=== PATIENT | male | born 1950 | race Two or more races ===

== ENCOUNTER → 2017-05-12 | Outpatient (CLI) | payer MEDICARE ==
[~2017-05-12] VITALS: Ht 188 cm; Wt 96.2 kg
[~2017-05-12] MED LIST: ASPI1TAB PO; ATOR1TAB21 PO; MULT1TAB10 PO; NS 1,000 ML IV ONE; PROPOFOL 200 MG/20 ML VIAL As Ordered ONE
--- NOTE | 2017-05-12 09:57 | ROOR ---
Patient Name: Adrian Rendon Procedure Date: 05/12/2017 9:27 AM Date of : 1950 Age: 66 Room: [facility] [place] Gender: Male Note Status: Finalized Procedure: Total Colonoscopy to Cecum + Cold Snare Polypectomy + Hemoclip Indications: Screening for colorectal malignant neoplasm, Last colonoscopy 10 years ago Providers: Mushtaq Hartman MD Referring MD: Jess Carlisle MD Requesting Provider: Medicines: Monitored Anesthesia Care Complications: No immediate complications. Procedure: Pre-Anesthesia Assessment: - The heart rate, respiratory rate, oxygen saturations, blood pressure, adequacy of pulmonary ventilation, and response to care were monitored throughout the procedure. The Colonoscope was introduced through the anus and advanced to the cecum, identified by appendiceal orifice and ileocecal valve. The colonoscopy was performed without difficulty. The patient tolerated the procedure well. The quality of the bowel preparation was excellent. Findings: The perianal and digital rectal examinations were normal. Non-bleeding internal hemorrhoids were found during retroflexion. The hemorrhoids were small and Grade I (internal hemorrhoids that do not prolapse). Multiple small and large-mouthed diverticula were found in the recto-sigmoid colon, sigmoid colon and descending colon. A small polyp was found at 20 cm proximal to the anus. The polyp was sessile. The polyp was removed with a cold snare. Resection and retrieval were complete. To prevent bleeding after the polypectomy, one hemostatic clip was successfully placed (MR conditional). There was no bleeding at the end of the procedure. A small polyp was found at 25 cm proximal to the anus. The polyp was sessile. The polyp was removed with a cold snare. Resection and retrieval were complete. The exam was otherwise without abnormality on direct and retroflexion views. Impression: - Non-bleeding internal hemorrhoids. - Diverticulosis in the recto-sigmoid colon, in the sigmoid colon and in the descending colon. - One small polyp at 20 cm proximal to the anus, removed with a cold snare. Resected and retrieved. Clip (MR conditional) was placed. - One small polyp at 25 cm proximal to the anus, removed with a cold snare. Resected and retrieved. - The examination was otherwise normal on direct and retroflexion views. - The exam was otherwise normal to the cecum. Recommendation: - Patient has a contact number available for emergencies. The signs and symptoms of potential delayed complications were discussed with the patient. Return to normal activities tomorrow. Written discharge instructions were provided to the patient. - High fiber diet. - Discharge patient to home. - Continue present medications. - Await pathology results. - Telephone GI clinic for pathology results in 1 week. - Telephone GI clinic for pathology results in 1 week. - Repeat colonoscopy for surveillance based on pathology results. - The findings and recommendations were discussed with the patient's family. Mushtaq Hartman MD Mushtaq Hartman MD 05/12/2017 9:57:24 AM This report has been signed electronically. Number of Addenda: 0 Note Initiated On: 05/12/2017 9:27 AM Estimated Blood Loss: Estimated blood loss: none.
[2017-05-12 10:14] VITALS: BP 129/79
== END | disposition home or self-care (01) ==
LOC: M OPP 08:30
PROVIDERS: ATTEND Internal Medicine Gastroenterology
DX: Z12.11 Encounter for screening for malignant neoplasm of colon (principal); K64.0 First degree hemorrhoids; K57.30 Diverticulosis of large intestine without perforation or abscess without bleeding; D12.5 Benign neoplasm of sigmoid colon; K63.5 Polyp of colon; E78.00 Pure hypercholesterolemia, unspecified; E11.9 Type 2 diabetes mellitus without complications; Z79.82 Long term (current) use of aspirin; Z79.899 Other long term (current) drug therapy

== ENCOUNTER → 2018-06-05 | Outpatient (REF) | payer MEDICARE ==
[2018-06-05 12:30] LABS: MALB URINE SIEMENS 16.1 MG/L; MAU/CREAT RATIO 9.5 MCG/MG (0.0-30.0)
== END ==
LOC: M SFHCPLAZ 11:49
DX: E11.9 Type 2 diabetes mellitus without complications (principal)
CPT/HCPCS: 82043

== ENCOUNTER → 2020-04-14 | Outpatient (CLI) | payer MEDICARE ==
[~2020-04-14] MED LIST changes: -ASPI1TAB PO; +ASPI81TA26 PO; +ISOVUE-370 76% 100ML VIAL As Ordered ONE; -NS 1,000 ML IV ONE; -PROPOFOL 200 MG/20 ML VIAL As Ordered ONE
--- NOTE | 2020-04-14 11:18 | REP ---
REASON: Followup findings from low-dose screening CT of the lungs, 03/17/2020, which was reviewed. That examination could not definitely rule out adenopathy due to the protocol utilized in obtaining the exam as per the screening protocol. CONTRAST TODAY: 100 mL Isovue-370. In the right paratracheal space, there is a 1-cm sized solid nodule which is abutting a curvilinear near water density structure which is arising from the superior pericardial recess. This has the appearance of a borderline size right paratracheal lymph node abutting an extended superior pericardial recess. There is no hannah hilar or mediastinal adenopathy. There are no pleural or pericardial effusions. The imaged upper abdomen is within normal limits. The imaged osseous structures are within normal limits for the patient's age. Evaluation of the lung pitt shows persistence of an irregular density in the right lung base, better imaged using standard protocol compared to low-dose screening protocol and having tiny cystic air spaces centrally. The lung pitt are otherwise clear with tiny peripheral pleural blebs seen in the apical regions and, again, better imaged using standard technique. IMPRESSION: 1. Mediastinal findings, as described above, are consistent with a borderline size right paratracheal lymph node abutting the superior pericardial recess. I would recommend close interval followup due to this patient's social history of tobacco abuse to ensure stability of the findings. The followup should be performed as today's examination, a contrast-enhanced examination, so an exact comparison can be made. 2. Changes in the right lung base, as described above, having the appearance of chronic change. This too can be followed in the recommended 3-month time interval. 3. There are some mild chronic lung field changed suggesting early emphysematous change, as described above. Incidentally, a small amount of density is seen in the trachea and in the mainstem bronchi, likely a small amount of mucoid debris. This was not present on the prior exam. Electronically Signed by Vincent Chapman DO 04/14/2020 02:46 P
== END ==
LOC: M RAD 09:50
PROVIDERS: ATTEND Family Medicine
DX: R59.0 Localized enlarged lymph nodes (principal); R91.8 Other nonspecific abnormal finding of lung field
CPT/HCPCS: 71260; Q9967

== ENCOUNTER → 2020-07-29 | Outpatient (CLI) | payer MEDICARE ==
[~2020-07-29] MED LIST changes: -ISOVUE-370 76% 100ML VIAL As Ordered ONE; +METF10004 PO; +MULTCAP PO
== END ==
LOC: M LABSMTC 09:23
PROVIDERS: ATTEND Anesthesiology
DX: Z01.812 Encounter for preprocedural laboratory examination (principal); Z20.828 Contact with and (suspected) exposure to other viral communicable diseases
CPT/HCPCS: C9803; U0003

== ENCOUNTER 2020-08-03 10:37 | Day surgery (SDC) | payer MEDICARE ==
[~2020-08-03] VITALS: Ht 185.4 cm; Wt 103.6 kg
[~2020-08-03 10:37] MED LIST changes: +BSS IRR 500ML/OMIDRIA 4ML IRR BAG (OR ONLY) (J1097 PER ML) As Ordered ONE; +CEFUROXIME 1MG/0.1ML INTRACAMERAL INJ As Ordered ONE; +DUOVISC (0.50ML VISCOAT/0.55ML PROVISC) OPHTH KIT As Ordered ONE; +OFLOXACIN 0.3 % (OCUFLOX) OPTH SOL 5ML OD ONE; +PHENYLEPHRINE 2.5% OPHTH SOL 2ML OD ONE; +POVIDONE-IODINE 5% OPHTH PREP SOL 30ML As Ordered ONE; +PROPARACAINE 0.5% OPHTH SOL 15ML OD ONE; +TROPICAMIDE 1% OPHTH SOLN 2ML OD ONE
[2020-08-03] MEDS ORDERED: fentaNYL 100 MCG/2 ML INJECTION (J3010) As Ordered ONE (12:34)
[2020-08-03] MEDS ORDERED: MIDAZOLAM INJ 2MG/2ML VIAL (J2250 PER 1MG) As Ordered ONE (12:34)
[2020-08-03 13:05] VITALS: BP 169/79
== END 2020-08-03 13:20 | disposition home or self-care (01) ==
LOC: M SDC 10:37
PROVIDERS: ATTEND Ophthalmology
DX: H25.11 Age-related nuclear cataract, right eye (principal); E11.9 Type 2 diabetes mellitus without complications; E78.5 Hyperlipidemia, unspecified; Z79.82 Long term (current) use of aspirin; Z79.899 Other long term (current) drug therapy
CPT/HCPCS: 66984; J1097; J2250; J3010; V2632

== ENCOUNTER → 2020-08-19 | Outpatient (CLI) | payer MEDICARE ==
[~2020-08-19] MED LIST changes: -BSS IRR 500ML/OMIDRIA 4ML IRR BAG (OR ONLY) (J1097 PER ML) As Ordered ONE; -CEFUROXIME 1MG/0.1ML INTRACAMERAL INJ As Ordered ONE; -DUOVISC (0.50ML VISCOAT/0.55ML PROVISC) OPHTH KIT As Ordered ONE; -OFLOXACIN 0.3 % (OCUFLOX) OPTH SOL 5ML OD ONE; -PHENYLEPHRINE 2.5% OPHTH SOL 2ML OD ONE; -POVIDONE-IODINE 5% OPHTH PREP SOL 30ML As Ordered ONE; -PROPARACAINE 0.5% OPHTH SOL 15ML OD ONE; -TROPICAMIDE 1% OPHTH SOLN 2ML OD ONE
== END ==
LOC: M LABSMTC 11:05
PROVIDERS: ATTEND Anesthesiology
DX: Z01.812 Encounter for preprocedural laboratory examination (principal); Z20.828 Contact with and (suspected) exposure to other viral communicable diseases
CPT/HCPCS: C9803; U0003

== ENCOUNTER 2020-08-24 10:32 | Day surgery (SDC) | payer MEDICARE ==
[~2020-08-24] VITALS: Ht 185.4 cm; Wt 103.0 kg
[~2020-08-24 10:32] MED LIST changes: +ACETYLCHOLINE OPHTH SOLN 1% 2ML (MIOCHOL-E) As Ordered ONE; +BALANCED SALT IRRIGATION SOLUTION 500ML BAG (FOR OR EYE MACHINE) As Ordered ONE; +BSS IRR 500ML/OMIDRIA 4ML IRR BAG (OR ONLY) (J1097 PER ML) As Ordered ONE; +CEFUROXIME 1MG/0.1ML INTRACAMERAL INJ As Ordered ONE; +DUOVISC (0.50ML VISCOAT/0.55ML PROVISC) OPHTH KIT As Ordered ONE; +OFLOXACIN 0.3 % (OCUFLOX) OPTH SOL 5ML OS ONE; +PHENYLEPHRINE 2.5% OPHTH SOL 2ML OS ONE; +POVIDONE-IODINE 5% OPHTH PREP SOL 30ML As Ordered ONE; +PROPARACAINE 0.5% OPHTH SOL 15ML OS ONE; +TROPICAMIDE 1% OPHTH SOLN 2ML OS ONE
[2020-08-24] MEDS ORDERED: fentaNYL 100 MCG/2 ML INJECTION (J3010) As Ordered ONE (12:20)
[2020-08-24] MEDS ORDERED: MIDAZOLAM INJ 2MG/2ML VIAL (J2250 PER 1MG) As Ordered ONE (12:20)
[2020-08-24 13:00] VITALS: BP 150/70
== END 2020-08-24 13:07 | disposition home or self-care (01) ==
LOC: M SDC 10:32
PROVIDERS: ATTEND Ophthalmology
DX: H25.12 Age-related nuclear cataract, left eye (principal); E11.9 Type 2 diabetes mellitus without complications; E78.5 Hyperlipidemia, unspecified; Z79.84 Long term (current) use of oral hypoglycemic drugs; Z79.82 Long term (current) use of aspirin
CPT/HCPCS: 66984; J1097; J2250; J3010; V2632

== ENCOUNTER → 2020-10-12 | Outpatient (CLI) | payer MEDICARE ==
[~2020-10-12] MED LIST changes: -ACETYLCHOLINE OPHTH SOLN 1% 2ML (MIOCHOL-E) As Ordered ONE; -BALANCED SALT IRRIGATION SOLUTION 500ML BAG (FOR OR EYE MACHINE) As Ordered ONE; -BSS IRR 500ML/OMIDRIA 4ML IRR BAG (OR ONLY) (J1097 PER ML) As Ordered ONE; -CEFUROXIME 1MG/0.1ML INTRACAMERAL INJ As Ordered ONE; -DUOVISC (0.50ML VISCOAT/0.55ML PROVISC) OPHTH KIT As Ordered ONE; +ISOVUE-370 76% 100ML VIAL As Ordered ONE; -OFLOXACIN 0.3 % (OCUFLOX) OPTH SOL 5ML OS ONE; -PHENYLEPHRINE 2.5% OPHTH SOL 2ML OS ONE; -POVIDONE-IODINE 5% OPHTH PREP SOL 30ML As Ordered ONE; -PROPARACAINE 0.5% OPHTH SOL 15ML OS ONE; -TROPICAMIDE 1% OPHTH SOLN 2ML OS ONE
--- NOTE | 2020-10-12 15:14 | REP ---
INDICATION: LYMPH NODE ENLARGEMENT. COMPARISON: Comparison chest CT study April 14, 2020 and March 17, 2020.. TECHNIQUE: Helical scanning is acquired 3 mm axial images are generated. Coronal and sagittal MPR and coronal MIP images are generated. The contrast enhancement dose is 75 mL of intravenous Isovue 370. 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 Posteriorly in the right lower lobe there is a subpleural area of localized interstitial fibrosis and emphysematous change with adjacent pleural thickening. This is unchanged from the 10/22/2020 study. 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 A ground-glass opacity nodule could have this appearance. On coronal multiplanar reformations images this has a 2.2 cm craniocaudal span. No other abnormal pulmonary parenchymal opacity. No nodule or mass lesion is no pleural effusion is seen. Vascular calcification including left coronary artery vascular calcification is observed. There is also evidence of aortic valve calcification. There is a cyst in the upper pole of each kidney and a small 2-3 mm calculus is seen in the upper pole collecting system of the right kidney. Normal adrenal glands are seen. The previously noted pretracheal mediastinal density is again seen unchanged from the April 14, 2020 prior study. It measures 1.7 cm in greatest oblique anterior to posterior dimension and is felt to be unchanged in size. On coronal and sagittal multiplanar reformations images this appears to be contiguous with the typical location of a small sliver of fluid in the pericardial recess posterior to the ascending aorta. This may be normal variant pericardial recess rather than adenopathy. In any event, it has not changed. There is no evidence of aortic aneurysm or dissection. There is no CT evidence of pulmonary embolus. IMPRESSION: 1. 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 Unchanged from April of 2020. Repeat chest CT study suggested in 6 months. 2. Pretracheal mediastinal density again noted unchanged from the April 14, 2020 study. Atypical pericardial recess versus lymph node. <Electronically signed by Pee Mendoza > 10/12/20 [id number]
== END ==
LOC: M RAD 11:18
PROVIDERS: ATTEND Family Medicine
DX: R91.8 Other nonspecific abnormal finding of lung field (principal); R59.9 Enlarged lymph nodes, unspecified
CPT/HCPCS: 71260; Q9967

== ENCOUNTER → 2021-04-26 | Outpatient (CLI) | payer MEDICARE ==
[~2021-04-26] MED LIST changes: -ISOVUE-370 76% 100ML VIAL As Ordered ONE
--- NOTE | 2021-04-26 09:41 | REP ---
INDICATION: ABN FINDINGS OF LUNG FIELD COMPARISON: Multiple the latest 10/12/2020 TECHNIQUE: Standard helical technique without the administration of intravenous contrast FINDINGS: Limited evaluation of the mediastinum and pulmonary alisa show no significant changes from the prior exam. No adenopathy or mass has developed. There are no pleural or pericardial effusions. There is no significant change in the appearance of the imaged upper abdomen or imaged osseous structures. Evaluation of the lung pitt shows an increase in the size of the right basilar ground-glass opacity no other abnormal nodules, masses, or opacities have developed. IMPRESSION: 1. Increased ground-glass opacity in the right lung base. Etiology uncertain. Pulmonary consultation and short interval follow-up is suggested. Consider PET-CT at this time if clinically relevant. 2. Other findings as described above. <Electronically signed by Vincent Chapman > 04/26/21 [id number]
== END ==
LOC: M RAD 09:08
PROVIDERS: ATTEND Physician Assistant
DX: R91.8 Other nonspecific abnormal finding of lung field (principal)

== ENCOUNTER → 2021-08-08 | Outpatient (CLI) | payer MEDICARE ==
--- NOTE | 2021-08-08 10:53 | REP ---
INDICATION: ABN FINDING OF LUNG, SERAFIN DEP, PANLOBULAR EMPHEZ COMPARISON: Multiple examinations dating 04/26/2021 through 04/14/2020 TECHNIQUE: Axial noncontrast images from the thoracic inlet to the upper abdomen with coronal and sagittal reformations. This CT examination was performed using the following dose reduction techniques: Automated exposure control, adjustment of mA and/or kv according to the patient's size, and use of iterative reconstruction technique. FINDINGS: Moderate COPD/emphysematous changes are appreciated. Subtle ground-glass opacity with interstitial prominence in the deep right posterior sulcus appears progressively increased from prior examinations, but without significant solid component. No further acute consolidation, suspicious nodule or mass. No effusion. No pneumothorax. Tracheobronchial tree is patent. Atherosclerotic changes to the thoracic aorta and coronary arteries are again noted without aortic aneurysm or cardiomegaly. No pericardial effusion. Nonspecific mediastinal and hilar lymph nodes identified without hannah adenopathy. Surrounding musculoskeletal structures demonstrate age-related changes without acute osseous abnormality. Stable 1 cm left adrenal adenoma. IMPRESSION: 1. Moderate chronic emphysematous changes. 2. Subtle area of ground-glass opacity with interstitial prominence in the deep right posterior sulcus mildly increased when compared through 2020. No associated solid component appreciated. 3. No further acute mediastinal or pleuroparenchymal process. <Electronically signed by Mike Ortega > 08/08/21 [id number]
== END ==
LOC: M RAD 09:53
PROVIDERS: ATTEND Physician Assistant
DX: R91.8 Other nonspecific abnormal finding of lung field (principal); J43.1 Panlobular emphysema; F17.290 Nicotine dependence, other tobacco product, uncomplicated

== ENCOUNTER → 2021-09-12 | Outpatient (CLI) | payer MEDICARE ==
--- NOTE | 2021-09-14 21:40 | ECHO ---
ECHOCARDIOGRAM DATE OF PROCEDURE: 09/12/2021 Age: 70 Gender: Male Height: 185 cm Weight: 98 kg REFERRING PHYSICIAN: Dr. Jess Carlisle INDICATION: Thoracic aortic ectasia 2D MEASUREMENTS: LVOT 2.0 cm Interventricular septum 0.83 cm Posterior wall 0.77 cm Left ventricle diastole 4.9 cm Left ventricle systole 3.0 cm Aortic root 4.0 cm Proximal ascending aorta 3.7 cm Mid aortic arch 3.1 cm Left atrium 3.6 cm Left atrial volume index 31 Inferior vena cava 1.8 cm with normal respiratory variation DOPPLER MEASUREMENTS: Mild aortic stenosis No aortic regurgitation Peak aortic valve velocity 255 cm/s Peak aortic valve gradient 26 mmHg Mean aortic valve gradient 16 mmHg Aortic valve VTI 67.8 cm LVOT velocity 74.6 cm/s LVOT VTI 19.3 cm Very mild mitral regurgitation Mitral E velocity 102 cm/s Mitral A velocity 82.4 cm/s Mitral deceleration time 225 msec No tricuspid regurgitation Trace pulmonic regurgitation Pulmonary artery systolic pressure 24 mmHg MITRAL ANNULAR TISSUE DOPPLER E prime septal 7.2 cm/s, E prime lateral 9.5 cm/s DESCRIPTION: Rhythm was sinus. The image quality was fair. No pericardial effusion. This was a 2D, M-mode, color flow Doppler, and pulsed wave Doppler examination including mitral annular tissue Doppler. CONCLUSIONS: 1. Moderate focal thickening and focal calcific deposits of a 3-cusp aortic valve. Mild aortic stenosis. No aortic regurgitation. 2. Mild dilatation of the aortic root at the level of the Sinus of Valsalva. 3. Normal left ventricle internal dimensions and wall thickness. Normal regional LV wall motion and wall thickening. Normal LV systolic function. LVEF 65-70% by visual estimate. Normal LV diastolic function for age. 4. Mild mitral annular calcification with very mild mitral regurgitation. 5. Otherwise normal appearing echocardiogram Doppler findings. RECOMMENDATIONS: Recommend a follow-up echocardiogram Doppler in two years.
== END ==
LOC: M CARPUL 08:24
PROVIDERS: ATTEND Family Medicine
DX: I77.810 Thoracic aortic ectasia (principal); I08.0 Rheumatic disorders of both mitral and aortic valves

== ENCOUNTER → 2022-01-09 | Outpatient (CLI) | payer MEDICARE ==
[2022-01-09 16:59] LABS: BLOOD UREA NITROGEN 19 MG/DL (7-18); CALCIUM LEVEL 9.2 MG/DL (8.8-10.2); CARBON DIOXIDE LEVEL 29 MEQ/L (21-32); CHLORIDE LEVEL 106 MEQ/L (98-107); CREATININE FOR GFR 1.04 MG/DL (0.70-1.30); GLOMERULAR FILTRATION RATE > 60.0 (>42); GLUCOSE, FASTING 115 MG/DL (70-100); POTASSIUM SERUM 4.5 MEQ/L (3.5-5.1); SODIUM LEVEL 141 MEQ/L (136-145)
[2022-01-09 20:51] LABS: HEMOGLOBIN A1c 7.4 %
== END ==
LOC: M WUC 14:38
PROVIDERS: ATTEND Family Medicine
DX: E11.9 Type 2 diabetes mellitus without complications (principal)

== ENCOUNTER → 2022-04-17 | Outpatient (CLI) | payer MEDICARE | LOC: M RAD 08:39 | PROVIDERS: ATTEND Internal Medicine Pulmonary Disease | DX: R91.8 Other nonspecific abnormal finding of lung field (principal) ==

== ENCOUNTER → 2022-06-28 | Outpatient (CLI) | payer MEDICARE ==
[2022-06-28 12:59] LABS: HEMATOCRIT 40.3 % (42.0-52.0); HEMOGLOBIN 13.3 g/dl (13.5-17.5); MEAN CORPUSCULAR VOLUME 90.8 fl (80.0-96.0); PLATELET COUNT, AUTOMATED 274 10^3/uL (150-450); RED BLOOD COUNT 4.44 10^6/uL (4.30-6.10); WHITE BLOOD COUNT 7.6 10^3/uL (4.0-10.0)
[2022-06-28 13:49] LABS: ALT/SGPT 26 U/L (12-78); BILIRUBIN,TOTAL 0.5 MG/DL (0.2-1.0); BLOOD UREA NITROGEN 23 MG/DL (7-18); CALCIUM LEVEL 9.3 MG/DL (8.8-10.2); CARBON DIOXIDE LEVEL 25 MEQ/L (21-32); CHLORIDE LEVEL 105 MEQ/L (98-107); CHOLESTEROL LEVEL 140 MG/DL (<200); CHOLESTEROL RISK RATIO 3.181 (<5); CREATININE FOR GFR 0.88 MG/DL (0.70-1.30); FREE T4 0.93 NG/DL (0.76-1.46); GLOMERULAR FILTRATION RATE > 60.0 (>42); GLUCOSE, FASTING 108 MG/DL (70-100); HDL CHOLESTEROL 44 MG/DL (>40); LDL CHOLESTEROL 86 MG/DL (<100); MALB URINE SIEMENS 25.4 MG/L; MAU/CREAT RATIO 17.5 MCG/MG (0.0-30.0); NON-HDL-C 96 MG/DL; POTASSIUM SERUM 4.5 MEQ/L (3.5-5.1); SODIUM LEVEL 137 MEQ/L (136-145); TOTAL PROTEIN 6.5 GM/DL (6.4-8.2); TRIGLYCERIDES LEVEL 52 MG/DL (<150)
[2022-06-28 13:52] LABS: HEMOGLOBIN A1c 6.6 %
[2022-06-28 14:12] LABS: TOTAL 25(OH) VITAMIN D 28.1 NG/ML (30.0-100.0)
[2022-06-28 14:14] LABS: VITAMIN B12 LEVEL 405 PG/ML (247-911)
== END ==
LOC: M PLALAB 11:34
PROVIDERS: ATTEND Internal Medicine Hematology
DX: E11.9 Type 2 diabetes mellitus without complications (principal); Z79.899 Other long term (current) drug therapy

== ENCOUNTER → 2023-01-16 | Outpatient (CLI) | payer MEDICARE ==
[2023-01-16 14:47] LABS: HEMATOCRIT 40.2 % (42.0-52.0); HEMOGLOBIN 13.2 g/dl (13.5-17.5); MEAN CORPUSCULAR HEMOGLOBIN 30.3 pg (27.0-33.0); MEAN CORPUSCULAR HGB CONC 32.8 g/dl (32.0-36.5); MEAN CORPUSCULAR VOLUME 92.2 fl (80.0-96.0); PLATELET COUNT, AUTOMATED 270 10^3/uL (150-450); RED BLOOD COUNT 4.36 10^6/uL (4.30-6.10); WHITE BLOOD COUNT 8.3 10^3/uL (4.0-10.0)
[2023-01-16 14:48] LABS: CREATININE, URINE 124.7 MG/DL; MAU/CREAT RATIO 9.6 MCG/MG (0.0-30.0)
[2023-01-16 14:51] LABS: C REACTIVE PROTEIN QUANTITATIV < 0.40 MG/DL (<1.0)
[2023-01-16 15:20] LABS: HEMOGLOBIN A1c 6.7 % (4.0-6.0)
[2023-01-16 15:52] LABS: ALKALINE PHOSPHATASE 99 U/L (46-116); ALT/SGPT 23 U/L (7.0-40); AST/SGOT 18 U/L (<34); BILIRUBIN,TOTAL 0.3 MG/DL (0.3-1.2); BLOOD UREA NITROGEN 19 MG/DL (9-23); CALCIUM LEVEL 8.8 MG/DL (8.3-10.6); CARBON DIOXIDE LEVEL 27 MMOL/L (20-31); CHLORIDE LEVEL 107 MMOL/L (98-107); CHOLESTEROL LEVEL 138 MG/DL (<200); CREATININE FOR GFR 0.93 MG/DL (0.70-1.30); FREE T4 1.05 NG/DL (0.89-1.76); GLOMERULAR FILTRATION RATE > 60.0 (>42); GLUCOSE, FASTING 144 MG/DL (74-106); HDL CHOLESTEROL 44.5 MG/DL (>40); LDL CHOLESTEROL 79.9 MG/DL (<100); NON-HDL-C 93.5 MG/DL; POTASSIUM SERUM 4.9 MMOL/L (3.5-5.1); SODIUM LEVEL 139 MMOL/L (136-145); THYROID STIMULATING HORMONE 3.445 uIU/ML (0.55-4.78); TOTAL PROTEIN 6.3 G/DL (5.7-8.2); TRIGLYCERIDES LEVEL 68 MG/DL (<150); VITAMIN B12 LEVEL 447 PG/ML (211-911)
== END ==
LOC: M PLALAB 11:31
PROVIDERS: ATTEND Internal Medicine Hematology
DX: E11.9 Type 2 diabetes mellitus without complications (principal)

== ENCOUNTER → 2023-01-27 | Outpatient (CLI) | payer MEDICARE | LOC: M PLALAB 11:16 | PROVIDERS: ATTEND Internal Medicine Hematology | DX: Z12.5 Encounter for screening for malignant neoplasm of prostate (principal) ==

== ENCOUNTER 2023-03-19 07:28 | Day surgery (SDC) | payer MEDICARE ==
[~2023-03-19] VITALS: Ht 188 cm; Wt 93.8 kg
[~2023-03-19 07:28] MED LIST changes: +BUPR150T12 PO; +METF-838 PO; +NS 1,000 ML IV ONE; +THERTAB52 PO
[2023-03-19] MEDS ORDERED: LIDOCAINE 2% 100MG/5ML SDV (FOR ANES.) As Ordered ONE (09:41)
[2023-03-19] MEDS ORDERED: propofoL 500 MG/50 ML VIAL As Ordered ONE (09:41)
[2023-03-19 10:17] VITALS: BP 150/79
== END 2023-03-19 10:18 | disposition home or self-care (01) ==
LOC: M OPP 07:28
PROVIDERS: ATTEND Internal Medicine Gastroenterology
DX: Z86.010 Personal history of colon polyps (principal); K64.0 First degree hemorrhoids; K57.30 Diverticulosis of large intestine without perforation or abscess without bleeding; Z79.02 Long term (current) use of antithrombotics/antiplatelets; Z79.82 Long term (current) use of aspirin; Z79.84 Long term (current) use of oral hypoglycemic drugs

== ENCOUNTER 2023-07-10 06:13 | Day surgery (SDC) | payer MEDICARE ==
[~2023-07-10] VITALS: Ht 185.4 cm; Wt 94.0 kg
[~2023-07-10 06:13] MED LIST changes: +AMPICILLIN SOD/SULBACTAM SOD 3 GM in D5W MINI-BAG PLUS 100 ML IV ONE; -NS 1,000 ML IV ONE
[2023-07-10] MEDS ORDERED: LR 1,000 ML IV SCH ×2 (06:20→08:35)
[2023-07-10] MEDS ORDERED: OXYMETAZOLINE 0.05% NASAL SPRAY (AFRIN) As Ordered ONE (06:48)
[2023-07-10] MEDS ORDERED: ACETAMINOPHEN 1000MG 100ML IV BAG As Ordered ONE (06:53)
[2023-07-10] MEDS ORDERED: propofoL 200 MG/20 ML VIAL As Ordered ONE (06:54)
[2023-07-10] MEDS ORDERED: LIDOCAINE 2% 100MG/5ML SDV (FOR ANES.) As Ordered ONE (06:54)
[2023-07-10] MEDS ORDERED: ONDANSETRON 4MG 2ML VIAL As Ordered ONE (06:54)
[2023-07-10] MEDS ORDERED: ROCURONIUM BROMIDE 50MG/5ML VIAL As Ordered ONE (06:54)
[2023-07-10] MEDS ORDERED: SUGAMMADEX SODIUM 500 MG/5 ML VIAL (BRIDION) As Ordered ONE (06:55)
[2023-07-10] MEDS ORDERED: fentaNYL 100 MCG/2 ML INJECTION As Ordered ONE (07:02)
[2023-07-10] MEDS ORDERED: MIDAZOLAM INJ 2MG/2ML VIAL As Ordered ONE (07:02)
[2023-07-10] MEDS ORDERED: CHLORHEXIDINE GLUCONATE 0.12 % 15ML UDC (PERIDEX ORAL RINSE) As Ordered ONE (07:16)
[2023-07-10] MEDS ORDERED: LIDOCAINE 2% W/ EPINEPHRINE 1.7 ML DENTAL INJ As Ordered ONE (07:17)
[2023-07-10] MEDS ORDERED: oxyCODONE 5MG TAB PO PRN (08:35)
[2023-07-10] MEDS ORDERED: ONDANSETRON 4MG 2ML VIAL IV PRN (08:35)
[2023-07-10] MEDS ORDERED: fentaNYL 100 MCG/2 ML INJECTION IV PRN (08:35)
[2023-07-10] MEDS ORDERED: HYDROMORPHONE HCL 0.5 MG/ 0.5 ML SYRINGE IV PRN (08:35)
[2023-07-10 09:21] VITALS: BP 141/70; TEMP 97.1; O2SAT 98
== END 2023-07-10 09:28 | disposition home or self-care (01) ==
LOC: M SDC 06:13
PROVIDERS: ATTEND Dentist
DX: K09.0 Developmental odontogenic cysts (principal); K01.1 Impacted teeth; E11.9 Type 2 diabetes mellitus without complications; Z79.84 Long term (current) use of oral hypoglycemic drugs; Z87.891 Personal history of nicotine dependence
CPT/HCPCS: 41899; 88305; J0131; J0295; J1100; J2250; J2405; J3010

== ENCOUNTER → 2023-07-22 | Outpatient (CLI) | payer MEDICARE ==
[~2023-07-22] MED LIST changes: -AMPICILLIN SOD/SULBACTAM SOD 3 GM in D5W MINI-BAG PLUS 100 ML IV ONE
[2023-07-22 15:03] LABS: HEMATOCRIT 39.1 % (42.0-52.0); HEMOGLOBIN 12.9 g/dl (13.5-17.5); MEAN CORPUSCULAR HEMOGLOBIN 30.5 pg (27.0-33.0); MEAN CORPUSCULAR VOLUME 92.4 fl (80.0-96.0); PLATELET COUNT, AUTOMATED 278 10^3/uL (150-450); RED BLOOD COUNT 4.23 10^6/uL (4.30-6.10); WHITE BLOOD COUNT 10.1 10^3/uL (4.0-10.0)
[2023-07-22 15:30] LABS: C REACTIVE PROTEIN QUANTITATIV < 0.40 MG/DL (<1.0); FREE T4 1.11 NG/DL (0.89-1.76); THYROID STIMULATING HORMONE 3.308 uIU/ML (0.55-4.78)
[2023-07-22 15:31] LABS: ALKALINE PHOSPHATASE 96 U/L (46-116); ALT/SGPT 28 U/L (7.0-40); AST/SGOT 21 U/L (<34); BILIRUBIN,TOTAL 0.3 MG/DL (0.3-1.2); BLOOD UREA NITROGEN 20 MG/DL (9-23); CARBON DIOXIDE LEVEL 26 MMOL/L (20-31); CHLORIDE LEVEL 107 MMOL/L (98-107); CHOLESTEROL LEVEL 145 MG/DL (<200); CHOLESTEROL RISK RATIO 2.79 (<5); CREATININE FOR GFR 0.92 MG/DL (0.70-1.30); GLOMERULAR FILTRATION RATE > 60.0 (>42); GLUCOSE, FASTING 106 MG/DL (74-106); HDL CHOLESTEROL 51.8 MG/DL (>40); LDL CHOLESTEROL 79.4 MG/DL (<100); NON-HDL-C 93.2 MG/DL; POTASSIUM SERUM 4.9 MMOL/L (3.5-5.1); SODIUM LEVEL 143 MMOL/L (136-145); TOTAL 25(OH) VITAMIN D 39.9 NG/ML (20.0-100.0); TOTAL PROTEIN 6.4 G/DL (5.7-8.2); TRIGLYCERIDES LEVEL 69 MG/DL (<150); VITAMIN B12 LEVEL 475 PG/ML (211-911)
[2023-07-22 16:01] LABS: MAU/CREAT RATIO 9.4 MCG/MG (0.0-30.0)
[2023-07-22 17:43] LABS: HEMOGLOBIN A1c 5.7 % (4.0-6.0)
== END ==
LOC: M PLALAB 11:17
PROVIDERS: ATTEND Internal Medicine Hematology
DX: E11.9 Type 2 diabetes mellitus without complications (principal); Z79.899 Other long term (current) drug therapy

== ENCOUNTER 2023-09-07 12:25 | Emergency (ER) | payer MEDICARE ==
[~2023-09-07] VITALS: Ht 185.4 cm; Wt 93.6 kg
[2023-09-07] MEDS ORDERED: ISOVUE-370 76% 100ML VIAL As Ordered ONE (13:03)
[2023-09-07 13:07] LABS: BASO # 0.1 10^3/uL (0.0-0.2); BASO % 0.5 % (0.0-1.0); EOS # 0.3 10^3/uL (0.0-0.5); EOS % 3.2 % (0.0-3.0); HEMATOCRIT 38.6 % (42.0-52.0); LYMPH # 2.6 10^3/uL (1.5-5.0); LYMPH % 26.3 % (24.0-44.0); MEAN CORPUSCULAR HEMOGLOBIN 30.2 pg (27.0-33.0); MEAN CORPUSCULAR HGB CONC 33.7 g/dl (32.0-36.5); MEAN CORPUSCULAR VOLUME 89.8 fl (80.0-96.0); MONO # 0.7 10^3/uL (0.0-0.8); NEUTROPHILS # 6.3 10^3/uL (1.5-8.5); NEUTROPHILS % 62.8 % (36.0-66.0); PLATELET COUNT, AUTOMATED 314 10^3/uL (150-450)
[2023-09-07] MEDS ORDERED: diphenhydrAMINE 50MG/ML VIAL IV STA (13:16)
[2023-09-07 13:19] LABS: INR 1.05; PARTIAL THROMBOPLASTIN TIME 25.8 SECONDS (24.8-34.2); PROTHROMBIN TIME 13.3 SECONDS (12.5-14.5)
[2023-09-07] MEDS ORDERED: methylPREDNISolone 125MG 2ML VIAL IV ONE (13:20)
[2023-09-07 13:38] LABS: RSV AMPLIFICATION NEGATIVE (NEGATIVE)
[2023-09-07 13:42] LABS: BLOOD UREA NITROGEN 18 MG/DL (9-23); CARBON DIOXIDE LEVEL 23 MMOL/L (20-31); CHLORIDE LEVEL 105 MMOL/L (98-107); CREATININE FOR GFR 0.87 MG/DL (0.70-1.30); GLOMERULAR FILTRATION RATE > 60.0 (>42); GLUCOSE, FASTING 199 MG/DL (74-106); POTASSIUM SERUM 3.9 MMOL/L (3.5-5.1); SODIUM LEVEL 139 MMOL/L (136-145)
[2023-09-07 14:57] LABS: APPEARANCE, URINE CLEAR (CLEAR); BACTERIA, URINE AUTO NEGATIVE (NEGATIVE); BILIRUBIN, URINE AUTO NEGATIVE (NEGATIVE); BLOOD, URINE BLOOD NEGATIVE (NEGATIVE); COLOR, URINE YELLOW (YELLOW); GLUCOSE, URINE (UA) AUTO NEGATIVE (NEGATIVE); KETONE, URINE AUTO NEGATIVE (NEGATIVE); LEUKOCYTE ESTERASE, URINE AUTO NEGATIVE (NEGATIVE); MUCUS, URINE SMALL (NEGATIVE); NITRITE, URINE AUTO NEGATIVE (NEGATIVE); PROTEIN, URINE AUTO NEGATIVE (NEGATIVE); RBC, URINE AUTO 1 /HPF (0-3); SPECIFIC GRAVITY URINE AUTO 1.008 (1.002-1.035); SQUAMOUS EPITHELIAL CELL UR AU 0 /HPF (0-6); UROBILINOGEN, URINE AUTO 0.2 mg/dL (0.0-2.0); WBC, URINE AUTO 0 /HPF (0-3)
[2023-09-07] MEDS ORDERED: diazePAM 10MG/2ML SYRINGE IV ONE (15:55)
[2023-09-07] MEDS ORDERED: ASPIRIN 325 MG TAB PO ONE (18:00)
[2023-09-07] MEDS ORDERED: ASPI-1 PO (18:10)
[2023-09-07 18:45] VITALS: BP 158/83; TEMP 97.6; O2SAT 98
== END 2023-09-07 18:59 | disposition left against medical advice (07) ==
LOC: M ED 12:25
DX: G45.9 Transient cerebral ischemic attack, unspecified (principal); Z53.9 Procedure and treatment not carried out, unspecified reason; E11.9 Type 2 diabetes mellitus without complications; E78.5 Hyperlipidemia, unspecified; Z79.84 Long term (current) use of oral hypoglycemic drugs; Z79.899 Other long term (current) drug therapy
CPT/HCPCS: 70450; 70496; 70498; 70551; 71045; 80047; 80048; 81001; 85025; 85610; 85730; 86850; 86900; 86901; 87631; 93005; 93041; 94760; 96374; 96375; 99285; J1200; J2930; J3360; Q9967

== ENCOUNTER → 2023-12-26 | Outpatient (CLI) | payer MEDICARE ==
[~2023-12-26] MED LIST changes: +ASPI-1 PO
[2023-12-26 14:20] LABS: HEMATOCRIT 39.4 % (42.0-52.0); HEMOGLOBIN 13.3 g/dl (13.5-17.5); MEAN CORPUSCULAR HEMOGLOBIN 30.6 pg (27.0-33.0); MEAN CORPUSCULAR HGB CONC 33.8 g/dl (32.0-36.5); MEAN CORPUSCULAR VOLUME 90.8 fl (80.0-96.0); PLATELET COUNT, AUTOMATED 262 10^3/uL (150-450); RED BLOOD COUNT 4.34 10^6/uL (4.30-6.10); WHITE BLOOD COUNT 9.2 10^3/uL (4.0-10.0)
[2023-12-26 14:24] LABS: C REACTIVE PROTEIN QUANTITATIV < 0.40 MG/DL (<1.0)
[2023-12-26 14:26] LABS: ALBUMIN 3.9 G/DL (3.2-5.2); ALKALINE PHOSPHATASE 88 U/L (46-116); ALT/SGPT 23 U/L (7.0-40); AST/SGOT 16 U/L (<34); BILIRUBIN,TOTAL 0.3 MG/DL (0.3-1.2); BLOOD UREA NITROGEN 29 MG/DL (9-23); CALCIUM LEVEL 8.8 MG/DL (8.3-10.6); CARBON DIOXIDE LEVEL 27 MMOL/L (20-31); CHLORIDE LEVEL 107 MMOL/L (98-107); CHOLESTEROL LEVEL 158 MG/DL (<200); CHOLESTEROL RISK RATIO 3.87 (<5); CREATININE FOR GFR 0.93 MG/DL (0.70-1.30); GLOMERULAR FILTRATION RATE > 60.0 (>42); GLUCOSE, FASTING 130 MG/DL (74-106); HDL CHOLESTEROL 40.8 MG/DL (>40); LDL CHOLESTEROL 94.6 MG/DL (<100); NON-HDL-C 117.2 MG/DL; POTASSIUM SERUM 4.7 MMOL/L (3.5-5.1); PSA SCREENING 0.36 NG/ML (< 4.00); SODIUM LEVEL 140 MMOL/L (136-145); TOTAL PROTEIN 6.4 G/DL (5.7-8.2); TRIGLYCERIDES LEVEL 113 MG/DL (<150)
[2023-12-26 14:29] LABS: FREE T4 1.06 NG/DL (0.89-1.76)
[2023-12-26 14:30] LABS: THYROID STIMULATING HORMONE 4.612 uIU/ML (0.55-4.78)
[2023-12-26 14:32] LABS: TOTAL 25(OH) VITAMIN D 41.6 NG/ML (20.0-100.0); VITAMIN B12 LEVEL 515 PG/ML (211-911)
[2023-12-26 14:49] LABS: HEMOGLOBIN A1c 6.4 % (4.0-6.0)
[2023-12-26 14:52] LABS: CREATININE, URINE 179.7 MG/DL
[2023-12-26 14:53] LABS: MAU/CREAT RATIO 11.1 MCG/MG (0.0-30.0)
== END ==
LOC: M PLALAB 10:09
PROVIDERS: ATTEND Internal Medicine Hematology
DX: E11.9 Type 2 diabetes mellitus without complications (principal); Z12.5 Encounter for screening for malignant neoplasm of prostate; Z79.899 Other long term (current) drug therapy
CPT/HCPCS: 36415; 80053; 80061; 82043; 82306; 82607; 83036; 84439; 84443; 85027; 86140; G0103

== ENCOUNTER → 2024-06-28 | Outpatient (CLI) | payer MEDICARE ==
[2024-06-28 13:20] LABS: BASO # 0.1 10^3/uL (0.0-0.2); BASO % 0.5 % (0.0-1.0); EOS # 0.7 10^3/uL (0.0-0.5); EOS % 6.8 % (0.0-3.0); HEMATOCRIT 36.8 % (42.0-52.0); HEMOGLOBIN 12.4 g/dl (13.5-17.5); LYMPH # 1.7 10^3/uL (1.5-5.0); LYMPH % 17.9 % (24.0-44.0); MEAN CORPUSCULAR HEMOGLOBIN 30.8 pg (27.0-33.0); MEAN CORPUSCULAR HGB CONC 33.7 g/dl (32.0-36.5); MEAN CORPUSCULAR VOLUME 91.3 fl (80.0-96.0); MONO # 0.8 10^3/uL (0.0-0.8); MONO % 8.1 % (2.0-8.0); NEUTROPHILS # 6.4 10^3/uL (1.5-8.5); NEUTROPHILS % 66.5 % (36.0-66.0); PLATELET COUNT, AUTOMATED 306 10^3/uL (150-450); RED BLOOD COUNT 4.03 10^6/uL (4.30-6.10); WHITE BLOOD COUNT 9.7 10^3/uL (4.0-10.0)
[2024-06-28 13:40] LABS: HEMOGLOBIN A1c 5.9 % (4.0-6.0)
[2024-06-28 13:51] LABS: BLOOD UREA NITROGEN 20 MG/DL (9-23); CALCIUM LEVEL 9.1 MG/DL (8.3-10.6); CARBON DIOXIDE LEVEL 29 MMOL/L (20-31); CHLORIDE LEVEL 105 MMOL/L (98-107); CREATININE FOR GFR 0.98 MG/DL (0.70-1.30); GLOMERULAR FILTRATION RATE > 60.0 (>42); GLUCOSE, FASTING 110 MG/DL (74-106); POTASSIUM SERUM 4.6 MMOL/L (3.5-5.1); SODIUM LEVEL 138 MMOL/L (136-145)
== END ==
LOC: M PLALAB 10:48
PROVIDERS: ATTEND Internal Medicine Hematology
DX: Z01.818 Encounter for other preprocedural examination (principal); E11.9 Type 2 diabetes mellitus without complications

== ENCOUNTER → 2024-11-15 | Outpatient (CLI) | payer MEDICARE ==
[2024-11-15 13:38] LABS: BASO # 0.1 10^3/uL (0.0-0.2); BASO % 0.6 % (0.0-1.0); EOS # 0.5 10^3/uL (0.0-0.5); EOS % 6.3 % (0.0-3.0); HEMATOCRIT 38.9 % (42.0-52.0); HEMOGLOBIN 12.9 g/dl (13.5-17.5); LYMPH # 2.1 10^3/uL (1.5-5.0); LYMPH % 27.1 % (24.0-44.0); MEAN CORPUSCULAR HEMOGLOBIN 30.1 pg (27.0-33.0); MEAN CORPUSCULAR HGB CONC 33.2 g/dl (32.0-36.5); MEAN CORPUSCULAR VOLUME 90.7 fl (80.0-96.0); MONO # 0.7 10^3/uL (0.0-0.8); MONO % 9.5 % (2.0-8.0); NEUTROPHILS # 4.4 10^3/uL (1.5-8.5); NEUTROPHILS % 56.2 % (36.0-66.0); PLATELET COUNT, AUTOMATED 275 10^3/uL (150-450); RED BLOOD COUNT 4.29 10^6/uL (4.30-6.10); WHITE BLOOD COUNT 7.8 10^3/uL (4.0-10.0)
[2024-11-15 13:42] LABS: ALBUMIN 3.8 G/DL (3.2-5.2); ALKALINE PHOSPHATASE 90 U/L (40-129); ALT/SGPT 28 U/L (7.0-40); AST/SGOT 24 U/L (<34); BILIRUBIN,TOTAL 0.4 MG/DL (0.3-1.2); BLOOD UREA NITROGEN 22 MG/DL (9-23); CARBON DIOXIDE LEVEL 28 MMOL/L (20-31); CHLORIDE LEVEL 104 MMOL/L (98-107); CHOLESTEROL LEVEL 154 MG/DL (<200); CHOLESTEROL RISK RATIO 3.21 (<5); CREATININE FOR GFR 0.91 MG/DL (0.70-1.30); GLOMERULAR FILTRATION RATE > 60.0 (>42); GLUCOSE, FASTING 119 MG/DL (74-106); HDL CHOLESTEROL 47.9 MG/DL (>40); IRON (FE) 91 UG/DL (65-175); LDL CHOLESTEROL 88.9 MG/DL (<100); NON-HDL-C 106.1 MG/DL; PERCENT SATURATION 28.5 % (19.7-50.0); SODIUM LEVEL 140 MMOL/L (136-145); TOTAL IRON BINDING CAPACITY 319 UG/DL (250-425); TOTAL PROTEIN 6.8 G/DL (5.7-8.2); TRIGLYCERIDES LEVEL 86 MG/DL (<150)
[2024-11-15 13:44] LABS: FERRITIN 54.5 NG/ML (10.5-307.3); VITAMIN B12 LEVEL 520 PG/ML (211-911)
== END ==
LOC: M PLALAB 09:37
PROVIDERS: ATTEND Student in an Organized Health Care Education/Training Program
DX: D64.9 Anemia, unspecified (principal); E11.9 Type 2 diabetes mellitus without complications; Z76.89 Persons encountering health services in other specified circumstances

== ENCOUNTER → 2024-11-15 | Outpatient (REF) | payer MEDICARE | LOC: M SFHCPLAZ 09:20 | PROVIDERS: ATTEND Student in an Organized Health Care Education/Training Program | DX: D64.9 Anemia, unspecified (principal); Z76.89 Persons encountering health services in other specified circumstances ==

== ENCOUNTER → 2025-07-08 | Outpatient (CLI) | payer MEDICARE | LOC: M CARPUL 09:28 | PROVIDERS: ATTEND Student in an Organized Health Care Education/Training Program | DX: I35.0 Nonrheumatic aortic (valve) stenosis (principal) ==